=== PATIENT | female | born 1970 | race Caucasian/White ===

== ENCOUNTER 2018-03-30 12:26 | Day surgery (SDC) | payer OTHER, SELFPAY ==
[2018-03-25 13:04] VITALS: BMI 27.9
[2018-03-30] VITALS (8 sets, daily range): BP systolic 100–117; BP diastolic 56–78; PULSE 54–70; RESP 15–16; TEMP 36.1–36.9; O2SAT 92–100; BMI 27.9
--- NOTE | 2018-03-30 | PATH_ITS ---
[facility] Accession Number: [id number] . 01 Material submitted: . CLITORAL MASS . 01 Diagnosis: Clitoral Mass, Excisional Biopsy: Benign peripheral nerve sheath tumor, consistent with schwannoma, see microscopic description. Negative for malignancy. MRV/04/01/2018 . 01 Electronically signed: . Sapna Beauchamp MD, Pathologist NPI- [id number] . 01 Gross description: . Received one formalin-filled container labeled with the patient's name and labeled clitoral mass are four 0.3 to 0.6 cm pink-fernández rough irregularly shaped portions of tissue. Inked blue and entirely submitted in one cassette. ([facility] [place]:[id number]) /[facility] . 01 Microscopic: . Microscopic examination reveals a relatively well circumscribed proliferation of bland spindle cells with wavy nucleus and fibrillary-appearing cytoplasm. There are hypocellular areas (Chente B/Verocay bodies) alternating with hypercellular areas (Chente A). There are interspersed thick-walled blood vessels also noted. There is no significant mitotic activity, cytologic atypia or necrosis. To support the morphologic impression of neural differentiation, a limited panel of immunostains is performed with the following results: . S100: Uniform, strong positive (this result supports neural differentiation). Smooth muscle actin: Negative (this result does not support muscular differentiation). . These immunohistochemical results along with the morphology support the diagnosis. The overlying squamous epithelium shows no dysplasia or malignancy. . * This test was developed and its performance characteristics determined by [employer]. It has not been cleared or approved by the [place]. Food and Drug Administration. The FDA has determined that such clearance or approval is not necessary. This test is used for clinical purposes. It should not be regarded as investigational or for research. . 01 Pathologist provided ICD-10: D28.9 . 01 CPT . 951086, [id number], [id number] Performed at: [address] [facility] [address], [place], [place] [id number] MD Corby Gomez MD Phone: [phone]
[2018-03-30] MEDS: LACTATED RINGERS 1,000 ML 42 ML IV (13:14)
[2018-03-30] MEDS: BUPIVACAINE 0.5% W/ EPI (PF) VIAL 30 ML INJ (13:33)
--- NOTE | 2018-03-30 13:38 | SUR.OPER ---
Lithotomy on padded OR bed, head on pillow, arms secured on padded arm boards at <90 degrees abduction. Legs secured in padded yellow fins stirrups.
--- NOTE | 2018-03-30 13:52 | PM.OP.1 ---
Operative Date/Time/Diagnoses Date of procedure: 03/30/18 Time of procedure: 13:53 Pre-op diagnosis: Clitoral mass Post-op diagnosis: same Procedure & Clinicians Procedure: Removal of clitoral mass Same procedure as scheduled: Yes Indications: Patient with pain and irritation from clitoral mass unable to remove in the office due to its position Surgeon: Jeri Farr Click Yes if Unassisted: Yes Anesthesia Type: General Operative Notes Findings: Left-sided clitoris 6 mm mass superficial with a 3 mm mass deep Closure Type: primary Specimen(s): other (Clitoral masses) Estimated Blood Loss (mL): 2 Blood products transfused: none Procedure in detail: Patient was brought to the operating room where she underwent general anesthesia. She was prepped and draped in usual sterile fashion. A check system was reviewed with the staff in the room. She had warming with blankets and pulsatile stockings in place and functional. The area was injected with 0.5% Marcaine with epinephrine less than 1 cc. An incision was made in elliptical fashion with a scalpel to remove the external mass. Small amount of dissection deep to retrieve the deeper mass. The incision was closed with 4 0 chromic suture. The no active bleeding at the end of the case. The patient went to recovery room in good condition. Constant instruments and sponges were correct. Complications: none Condition: stable Disposition: same day surgery Plan for aftercare: Keep area clean and dry. Cold to area for the 1st 24 hr to decrease pain and swelling
--- NOTE | 2018-03-30 13:52 | PM.PREOP ---
Pre-operative Note Interval Note History & Physical reviewed/Exam performed by Physician: Yes Changes to H&P: No
[2018-03-30] MEDS: HYDROCODONE/ACET 5/325 TABLET 2 TAB PO (14:20)
--- NOTE | 2018-03-30 15:16 | SUR.PHASEII ---
pt resting, spouse at side, vss, no co's n/v or pain
== END 2018-03-30 15:30 | disposition home or self-care (01) ==
PROVIDERS: PCP Naturopath; Visit Provider Specialist
PROC: (CPT 11421; principal; 2018-03-30 13:30)
DX: D28.0 Benign neoplasm of vulva (principal)
CPT/HCPCS: 11421; J1100; J1885; J2250; J2405; J2704; J3010